=== PATIENT | female | born 1960 | race Two or more races ===

== ENCOUNTER 2016-12-16 12:32 | Emergency (ER) | payer OTHER ==
[2016-12-16 12:40] VITALS: BP 138/90; PULSE 91; TEMP 98.1; BMI 24.5
[2016-12-16] MEDS ORDERED: IBUPROFEN 600 MG TABLET (FP) PO ONE ×2 (13:46→13:49)
--- NOTE | 2016-12-16 13:57 | PDOC ---
History of Present Illness - General Chief Complaint: Injury Stated Complaint: REVISIT/ RT LEG PAIN Time Seen by Provider: 12/16/16 13:36 History Source: Patient Exam Limitations: No Limitations - History of Present Illness Initial Comments: 12/16/16 14:04 This is a 56-year-old woman without significant past medical history who presents today with ankle pain and abrasion to right elbow status post trip and fall over a rock yesterday. Patient was in her normal state of health over a large rock landing on the ground. She denies striking her head or any loss of consciousness. Unable to ambulate immediately after injury and was able to ambulate in the ER today. ETOH- denies TOB- denies Illicits- denies Pain: P- right lateral ankle Q- Achy R- no radiation S- 9 T- 2 days Occurred: reports: yesterday Method of Injury: Yes: unknown Modifying Factors: improves with: None Past History - Past Medical History Allergies/Adverse Reactions: Allergies Allergy/AdvReac Type Severity Reaction Status Date / Time No Known Allergies Allergy Verified 12/16/16 12:40 Home Medications: Ambulatory Orders NK [No Known Home Medication] 12/16/16 Anemia: No Asthma: No Cancer: No Cardiac Disorders: No CVA: No COPD: No CHF: No Dementia: No Diabetes: No GI Disorders: No Disorders: No HTN: No Hypercholesterolemia: No Kidney Stones: No Liver Disease: No Suicide Attempt (Hx): No Seizures: No Thyroid Disease: No Other medical history: denies - Surgical History Abdominal Surgery: No Appendectomy: No Cardiac Surgery: No Cholecystectomy: No Lung Surgery: No Neurologic Surgery: No Orthopedic Surgery: No - Reproductive History PID: No - Psycho/Social/Smoking Cessation Hx Anxiety: No Suicidal Ideation: No Smoking History: Current every day smoker Have you smoked in the past 12 months: Yes Number of Cigarettes Smoked Daily: 10 Information on smoking cessation initiated: Yes 'Breaking Loose' booklet given: 12/16/16 Hx Alcohol Use: No Drug/Substance Use Hx: No Substance Use Type: None Hx Substance Use Treatment: Yes Trauma Specific PMHX - Complaint Specific PMHX Arthritis: No Review of Systems - Review of Systems Able to Perform ROS?: Yes Comments:: 12/16/16 13:48 [employer] #[id number] Is the patient limited Kiswahili proficient: Yes Constitutional: No: Symptoms Reported HEENTM: No: Symptoms Reported Respiratory: No: Symptoms reported Cardiac (ROS): No: Symptoms Reported ABD/GI: No: Symptoms Reported : No: Symptoms Reported Musculoskeletal: Yes: See HPI Integumentary: No: Symptoms Reported Neurological: No: Symptoms reported *Physical Exam - Vital Signs Last Vital Signs Temp Pulse Resp BP Pulse Ox 98.1 F 91 H 18 138/90 98 12/16/16 12:38 12/16/16 12:38 12/16/16 12:38 12/16/16 12:38 12/16/16 12:38 - Physical Exam General Appearance: Yes: Appropriately Dressed. No: Apparent Distress HEENT: positive: EOMI, BAYLEE, Normal ENT Inspection, Normal Voice, Symmetrical Neck: positive: Trachea midline, Supple Respiratory/Chest: positive: Lungs Clear, Normal Breath Sounds. negative: Chest Tender, Respiratory Distress Cardiovascular: positive: Regular Rhythm, Regular Rate. negative: Edema Gastrointestinal/Abdominal: positive: Normal Bowel Sounds, Soft. negative: Tender Musculoskeletal: positive: Normal Inspection. negative: CVA Tenderness Extremity: positive: Normal Capillary Refill, Normal Inspection, Other (TTP over lateral malleolus). negative: Normal Range of Motion Integumentary: positive: Normal Color, Dry, Warm, Other (abrasion noted to right elbow) Neurologic: positive: habilitation worker II-XII NML intact, Fully Oriented, Alert, Normal Mood/ Affect, Normal Response, Motor Strength 5/5 Medical Decision Making - Medical Decision Making 12/16/16 14:07 A: This is a 56-year-old woman without significant past medical history who presents today with ankle pain and abrasion to right elbow status post trip and fall over a rock yesterday. Patient was in her normal state of health over a large rock landing on the ground. She denies striking her head or any loss of consciousness. Unable to ambulate immediately after injury and was able to ambulate in the ER today. Full ROM against resistance. Strength 5/5 in all extremities. [place] akles rules recommend imaging. P: - xray of right ankle and foot - Motrin 600mg po now - tetanus booster 12/16/16 15:19 Xray as read by Cherelle: No acute fractures are seen. There is a mildly permeative pattern in the distal end of the fibula. I discussed the physical exam findings, ancillary test results and final diagnoses with the patient. I answered all of the patient's questions. The patient was satisfied with the care received and felt comfortable with the discharge plan and treatment plan. The patient will call her doctor within 72 hours to arrange follow-up and will return to the Emergency Department with any new, persistent or worsening symptoms. *DC/Admit/Observation/Transfer Diagnosis at time of Disposition: Acute right ankle pain - Discharge Dispostion Disposition: HOME Condition at time of disposition: Stable Admit: No - Patient Instructions Printed Discharge Instructions: DI for Ankle Pain Additional Instructions: Gisselle Hadley segn las instrucciones del fabricante. Coker radiografa muestra un hallazgo que es poncho fractura no aguda, rachel poncho RM puede revelar fracturas, osteoporosis o cualquier otra cosa que incluya la posibilidad de cncer. Se recomienda realizar un seguimiento con coker mdico habitual jacqueline horario de poncho resonancia magntica jacqueline un paciente ambulatorio para seguir evaluando frank hallazgo pema. Departamento de emergencias por cualquier empeoramiento del dolor, incapacidad para caminar, hinchazn o cualquier otra preocupacin. Isaac por elegirnos para atender las necesidades mdicas emergentes.
[2016-12-16] MEDS ORDERED: DIPHTH,PERTUSS(ACELL),TET 0.5 ML DISP.SYRIN IM ONE (14:11)
== END 2016-12-16 15:31 | disposition home or self-care (01) ==
LOC: JERFT 12:32
PROC: 3E0234Z Introduction of Serum, Toxoid and Vaccine into Muscle, Percutaneous Approach (ICD-10-PCS; principal; 2016-12-16)
DX: M25.571 Pain in right ankle and joints of right foot (principal); S50.311A Abrasion of right elbow, initial encounter; W18.09XA Striking against other object with subsequent fall, initial encounter; Y93.89 Activity, other specified; Y92.89 Other specified places as the place of occurrence of the external cause; F17.210 Nicotine dependence, cigarettes, uncomplicated
CPT/HCPCS: 73610-TC-RT; 73630-TC-RT; 90471; 90715; 99281-25

== ENCOUNTER 2018-11-05 07:35 | Emergency (ER) | payer OTHER | END 2018-11-05 13:30 | disposition home or self-care (01) | LOC: JER 07:35 ==

== ENCOUNTER 2019-11-09 21:22 | Emergency (ER) | payer OTHER ==
--- NOTE | 2019-11-09 21:28 | PDOC ---
Rapid Medical Evaluation Time Seen by Provider: 11/09/19 21:25 Medical Evaluation: Allergies Allergy/AdvReac Type Severity Reaction Status Date / Time No Known Allergies Allergy Verified 11/05/18 08:04 11/09/19 21:25 I performed a brief in-person evaluation of this patient. Pt is a 59 y/o female who presents to the ED with complaint of LUQ, LLQ and left flank pain. No hematuria, no dysuria. No fevers, chills, n/v/d/c. The patient states that she is having trouble eating. She has taken Aleve without much relief. No past medical history, no allergies. Pertinent physical exam findings: LUQ, LLQ left flank tender to palp, nontoxic, speaking in full sentences I have ordered the following: labs, ekg, imaging deferred to treating provider Patient to proceed to ED for further evaluation. Discharge Disposition - Diagnosis Abdominal pain - Referrals - Patient Instructions - Post Discharge Activity
[2019-11-09 21:29] VITALS: BP 146/78; TEMP 98.6; BMI 26.4
[2019-11-09 21:37] VITALS: PULSE 93
[2019-11-09] MEDS ORDERED: LIDOCAINE PATCH REMOVAL MC SCH (22:00)
[2019-11-09 22:39] LABS: BASO % 0.7 % (0-2.0); EOS % 1.7 % (0-4.5); HEMATOCRIT 37.9 % (32.4-45.2); HEMOGLOBIN 13.1 GM/dL (10.7-15.3); LYMPH % 59.1 % (8-40); MCH 34.4 pg (25.7-33.7); MCHC 34.6 g/dl (32.0-36.0); MEAN CELL VOLUME 99.6 fl (80-96); MEAN PLT VOLUME 8.4 fl (7.5-11.1); MONO % 8.8 % (3.8-10.2); NEUT % 29.7 % (42.8-82.8); PLATELET COUNT 193 K/MM3 (134-434); RDW 13.3 % (11.6-15.6); WHITE BLOOD COUNT 4.9 K/mm3 (4.0-10.0)
[2019-11-09] MEDS ORDERED: ACETAMINOPHEN 325 MG TABLET (FP) PO ONE (22:39)
[2019-11-09] MEDS ORDERED: LACTATED RINGERS SOLUTION 1000 ML INFUS.BAG IV ONE (22:39)
[2019-11-09] MEDS ORDERED: ACETAMINOPHEN 325 MG TABLET (FP) ONE (22:47)
[2019-11-09 23:03] LABS: INR 0.9 (0.83-1.09); PROTHROMBIN TIME (PATIENT) 10.6 SEC (9.7-13.0)
[2019-11-09 23:06] LABS: ACTIVATED PTT 29.5 SECONDS (25.2-36.5)
[2019-11-09 23:09] LABS: ALBUMIN 3.8 g/dl (3.4-5.0); BILIRUBIN,TOTAL 0.4 mg/dL (0.2-1); BLOOD UREA NITROGEN 5.8 mg/dL (7-18); CALCIUM 9.1 mg/dL (8.5-10.1); CREATININE 0.5 mg/dL (0.55-1.3); POTASSIUM 4.4 mmol/L (3.5-5.1); TOT PROT 7.4 g/dl (6.4-8.2)
[2019-11-09 23:13] LABS: PH,URINE 5.5 (5.0-8.0); URINE APPEARANCE CLEAR; URINE BILIRUBIN NEGATIVE (NEGATIVE); URINE COLOR YELLOW; URINE GLUCOSE (UA) NEGATIVE (NEGATIVE); URINE KETONE NEGATIVE (NEGATIVE); URINE LEUK ESTERASE NEGATIVE (NEGATIVE); URINE NITRITE NEGATIVE (NEGATIVE); URINE PROTEIN NEGATIVE (NEGATIVE); URINE UROBILINOGEN 0.2 mg/dL (0.2-1.0)
--- NOTE | 2019-11-09 23:26 | PDOC ---
Attending Attestation - Resident Resident Name: Aldo Collins - ED Attending Attestation I have performed the following: I have examined & evaluated the patient, The case was reviewed & discussed with the resident, I agree w/resident's findings & plan - HPI HPI: 11/09/19 23:26 Pt comes with epigastric pain; she is a heavy drinker of alcohol. - Physicial Exam PE: 11/10/19 02:03 Normal exam. Heart lungs clear abd soft NT ND pt has minimal epigastric discomfort Pt has no flank pain Pt is moving all extremities and answering questions normally Pt has alcohol intox. - Medical Decision Making 11/10/19 00:08 Patient Name: YOANNA BURROUGHS THIS IS A PRELIMINARY REPORT FROM [facility] DATE OF SERVICE: 2019-11-09 23:20:54 IMAGES: [id number] EXAM: SPIRAL- RENAL-STONE CT HISTORY: Left lower quadrant pain COMPARISON: None. FINDINGS: The lung bases are clear. There are coronary artery calcifications Liver is mildly enlarged measuring 18 cm in craniocaudal dimension. The g allbladder, spleen, pancreas and adrenal glands are grossly normal allowing for lack of intravenous contrast The kidneys are normal in size without hydronephrosis or nephrolithiasis. There are a few small calcifications along the course of the left ureter suspected to be adjacent vascular calcifications in the absence of obstructive findings although cannot entirely exclude nonobstructing ureteral stones. No bowel distention or appreciable thickening allowing for lack of enteric contrast. Normal appendix. Enlarged lobulated uterus with multiple leiomyomas and myomatous calcifications No intra-abdominal free air or free fluid of 11/10/19 00:55 All labs are normal 11/10/19 02:21 Pt received a banana bag and she is stable for d/c home Discharge - Discharge Information Problems reviewed: Yes Clinical Impression/Diagnosis: Flank pain Abdominal pain Qualifiers: Abdominal location: left lower quadrant Qualified Code(s): R10.32 - Left lower quadrant pain Condition: Improved Disposition: HOME - Follow up/Referral Referrals: Jolly Rich MD [Staff Physician] - - Patient Discharge Instructions Patient Printed Discharge Instructions: DI for Abdominal Pain-Adult Additional Instructions: Llegaste al servicio de urgencias con dolor en la parte inferior izquierda de tu abdomen. Tomamos poncho foto de coker abdomen con poncho tomografa computarizada, analizamos coker avinash y le dimos un medicamento para el dolor. Descubrimos que tienes crecimientos en tu tero. Zara un seguimiento con OBGYN (Dr. Rich) dentro de los 7 sepulveda posteriores al emiliana. Regrese al departamento de emergencias si tiene algn sntoma nuevo o que empeore. Print Language: IRISH - Post Discharge Activity
--- NOTE | 2019-11-09 23:40 | PDOC ---
History of Present Illness - General Chief Complaint: Pain Stated Complaint: LLQ/L/SACRAL/PAIN Time Seen by Provider: 11/09/19 21:25 - History of Present Illness Initial Comments: 11/09/19 23:31 59yo F w/ h/o frequent use EtOH p/w L sided ABD, CVA, and flank pain. It started 3days ago when she was lifting a heavy shopping bag. Since then her diet has been decreased and the pain has gotten more severe. It is Left Lower ABD just above the inguinal ligament and radiates along the left flank to her L CVA area. No h/o kidney stones, hernias. No dysuria. No hematuria, vaginal bleeding, n/v/d/cough/fever/rash. No pain w/ defecation. No melena or hematochezia. Last urine and BM were both today. She is keeping food down. PMH: hospitalized 14yrs ago for some cardiac issue. Does not f/u w/ cardiology. denies having overseamer or PCP. PSH: distant c/s FHx: no h/o cancer SHx: 6-7cigs/day [id number] years. Daily EtOH use. states "2 beers per day." denies other kinds of EtOH. last intake of EtOH was 40oz 1hour ago. denies street drugs ROS CONSTITUTIONAL: Absent: fever, chills, diaphoresis, generalized weakness, malaise, loss of appetite HEENT: Absent: rhinorrhea, nasal congestion, throat pain, throat swelling, difficulty swallowing, mouth swelling, ear pain, eye pain, visual Changes CARDIOVASCULAR: Absent: chest pain, syncope, palpitations, irregular heart rate, lightheadedness, peripheral edema RESPIRATORY: Absent: cough, shortness of breath, dyspnea with exertion, orthopnea, wheezing, stridor, hemoptysis GASTROINTESTINAL: Absent: abdominal pain, abdominal distension, nausea, vomiting, diarrhea, cons tipation, melena, hematochezia GENITOURINARY: Absent: dysuria, frequency, urgency, hesitancy, hematuria, flank pain, genital pain MUSCULOSKELETAL: Absent: myalgia, arthralgia, joint swelling SKIN: Absent: rash, itching, pallor HEMATOLOGIC/IMMUNOLOGIC: Absent: easy bleeding, easy bruising, lymphadenopathy, frequent infections ENDOCRINE: Absent: unexplained weight gain, unexplained weight loss, heat intolerance, cold intolerance NEUROLOGIC: Absent: headache, focal weakness or paresthesias, dizziness, unsteady gait, seizure, mental status changes, bladder or bowel incontinence PSYCHIATRIC: Absent: anxiety, depression, suicidal or homicidal ideation, hallucinations. PE GENERAL: Thin woman. Awake and alert. No acute distress. Smell of EtOH on breath. HEENT: Normocephalic, atraumatic. PERRLA, EOMI. Mucous membranes are dry. Missing many teeth NECK: Supple. Full ROM. No JVD. No thyromegaly. CARDIOVASCULAR: Regular rate and rhythm. No murmurs, rubs, or gallops. Distal pulses are 2+ and symmetric. PULMONARY: No evidence of respiratory distress. Lungs demonstrate bilateral inspiratory wheezing. ABDOMINAL: Tender on LUQ and LLQ. Tender on L flank and L CVA tenderness. No organomegaly. Normoactive bowel sounds. MUSCULOSKELETAL Normal range of motion at all joints. No bony deformities or tenderness. No CVA tenderness. EXTREMITIES: No cyanosis. No clubbing. No edema. No calf tenderness. SKIN: Warm and dry. Normal capillary refill. No rashes. No jaundice. NEUROLOGICAL: Alert, awake, appropriate. PSYCHIATRIC: Cooperative. Good eye contact. Appropriate mood and affect. MDM CT scan showed leiomyomata in urterus but no stones or intra ABD pathology Blood work showed no signs of inflammation, hepatic, renal, or GI pathology. UA was negative. Will send home w/ referral for OBGYN. 11/09/19 23:41 11/10/19 01:28 Past History - Medical History Allergies/Adverse Reactions: Allergies Allergy/AdvReac Type Severity Reaction Status Date / Time No Known Allergies Allergy Verified 11/05/18 08:04 Home Medications: Ambulatory Orders Famotidine 10 mg PO BID PRN 14 Days #28 tablet 11/05/18 Ibuprofen [Advil -] 200 mg PO QID PRN 11/05/18 Mag Hydrox/Al Hydrox/Simeth [Mylanta *Suspension*] 10 ml PO Q6H PRN 30 Days #1200 cup 11/05/18 Anemia: No Asthma: No Cancer: No Cardiac Disorders: No CVA: No COPD: No CHF: No Dementia: No Diabetes: Yes GI Disorders: No Disorders: No HTN: No Hypercholesterolemia: No Kidney Stones: No Liver Disease: No Seizures: No Thyroid Disease: No - Surgical History Abdominal Surgery: No Appendectomy: No Cardiac Surgery: No Cholecystectomy: No Lung Surgery: No Neurologic Surgery: No Orthopedic Surgery: No - Reproductive History PID: No - Immunization History Immunization Up to Date: Yes - Psycho-Social/Smoking History Smoking History: Current every day smoker Have you smoked in the past 12 months: Yes Number of Cigarettes Smoked Daily: 6 Information on smoking cessation initiated: No 'Breaking Loose' booklet given: 12/16/16 - Substance Abuse Hx (Audit-C & DAST Scrn) How often the patient has a drink containing alcohol: Never Score: In Men: 4 or > Positive; In Women: 3 or > Positive: 0 Screen Result (Pos requires Nsg. Audit-10AR): Negative *Physical Exam - Vital Signs Last Vital Signs Temp Pulse Resp BP Pulse Ox 98.6 F 93 H 19 146/78 97 11/09/19 21:25 11/09/19 21:25 11/09/19 21:25 11/09/19 21:25 11/09/19 21:25 ED Treatment Course - LABORATORY CBC & Chemistry Diagram: 11/09/19 22:30 11/09/19 22:30 - ADDITIONAL ORDERS Additional order review: Laboratory Results 11/09/19 11/09/19 11/09/19 23:00 22:30 22:30 PT with INR 10.60 INR 0.90 PTT (Actin FS) 29.5 Sodium 139 Potassium 4.4 Chloride 103 Carbon Dioxide 27 Anion Gap 10 BUN 5.8 L Creatinine 0.5 L Est GFR (CKD-EPI)AfAm 123.65 Est GFR (CKD-EPI)NonAf 106.68 Random Glucose 89 Calcium 9.1 Total Bilirubin 0.4 AST 48 H ALT 25 Alkaline Phosphatase 75 Total Protein 7.4 Albumin 3.8 Lipase 110 Urine Color Yellow Urine Appearance Clear Urine pH 5.5 Ur Specific [place] 1.003 L Urine Protein Negative Urine Glucose (UA) Negative Urine Ketones Negative Urine Blood Negative Urine Nitrite Negative Urine Bilirubin Negative Urine Urobilinogen 0.2 Ur Leukocyte Esterase Negative 11/09/19 22:30 RBC 3.80 MCV 99.6 H MCHC 34.6 RDW 13.3 MPV 8.4 Neutrophils % 29.7 L D Lymphocytes % 59.1 H D Monocytes % 8.8 Eosinophils % 1.7 D Basophils % 0.7 D - RADIOLOGY Radiology Studies Ordered: Category Date Time Status SPIRAL- RENAL-STONE CT [CT] Stat CT Scan 11/09/19 23:12 Taken Radiograph Interpretation: Spiral CT THIS IS A PRELIMINARY REPORT FROM [facility] DATE OF SERVICE: 2019-11-09 23:20:54 IMAGES: [id number] EXAM: SPIRAL- RENAL-STONE CT HISTORY: Left lower quadrant pain COMPARISON: None. FINDINGS: The lung bases are clear. There are coronary artery calcifications Liver is mildly enlarged measuring 18 cm in craniocaudal dimension. The gallbladder, spleen, pancreas and adrenal glands are grossly normal allowing for lack of intravenous contrast The kidneys are normal in size without hydronephrosis or nephrolithiasis. There are a few small calcifications along the course of the left ureter suspected to be adjacent vascular calcifications in the absence of obstructive findings although cannot entirely exclude nonobstructing ureteral stones. No bowel distention or appreciable thickening allowing for lack of enteric contrast. Normal appendix. Enlarged lobulated uterus with multiple leiomyomas and myomatous calcifications No intra-abdominal free air or free fluid of One or more of the following dose reduction techniques were used: automated exposure control, adjustment of the mA and/or kV according to patient size, use of iterative reconstructive technique. THIS DOCUMENT HAS BEEN ELECTRONICALLY SIGNED Nadeem Mendez MD 11/09/2019 23:41 EST M.D. Please call Imaging Vice President Of Compliance [phone] ([phone]) with questions. - Medications Given in the ED: ED Medications Discontinued Medications Generic Name Dose Route Start Last Admin Trade Name Freq PRN Reason Stop Dose Admin Acetaminophen 650 mg 11/09/19 22:39 11/09/19 23:09 Tylenol - PO 11/09/19 22:40 650 mg ONCE ONE Administration Lactated Ringer's 1,000 ml 11/09/19 22:39 11/09/19 23:08 Lactated Ringers Solution IV 11/09/19 22:40 1,000 ml ONCE ONE Administration Discharge - Discharge Information Problems reviewed: Yes Clinical Impression/Diagnosis: Flank pain Abdominal pain Qualifiers: Abdominal location: left lower quadrant Qualified Code(s): R10.32 - Left lower quadrant pain Condition: Improved Disposition: HOME - Admission No - Follow up/Referral Referrals: Jolly Rich MD [Staff Physician] - - Patient Discharge Instructions Patient Printed Discharge Instructions: DI for Abdominal Pain-Adult Additional Instructions: Llegaste al servicio de urgencias con dolor en la parte inferior izquierda de tu abdomen. Tomamos poncho foto de coker abdomen con poncho tomografa computarizada, analizamos coker avinash y le dimos un medicamento para el dolor. Descubrimos que tienes crecimientos en tu tero. Zara un seguimiento con OBGYN (Dr. Rich) dentro de los 7 sepulveda posteriores al emiliana. Regrese al departamento de emergencias si tiene algn sntoma nuevo o que empeore. Print Language: HUNGARIAN - Post Discharge Activity
[2019-11-09] MEDS ORDERED: LIDOCAINE 5% TOPICAL PATCH TP ONE (23:51)
[2019-11-09] MEDS ORDERED: KETOROLAC TROMETHAMINE 30 MG/1 ML VIAL IM ONE (23:51)
[2019-11-09] MEDS ORDERED: LIDOCAINE 5% TOPICAL PATCH ONE (23:57)
[2019-11-09] MEDS ORDERED: KETOROLAC TROMETHAMINE 30 MG/1 ML VIAL ONE (23:57)
[2019-11-10] MEDS ORDERED: FOLIC ACID INJECTION - 1 MG, THIAMINE HCL 100 MG, MULTIVIT INJECTION ADULT 10 ML in SOD... IVPB ONE ×2 (01:04→01:05)
--- NOTE | 2019-11-11 10:05 | EKG ---
Test Reason : Blood Pressure : / mmHG Vent. Rate : 071 BPM Atrial Rate : 071 BPM P-R Int : 180 ms QRS Dur : 072 ms QT Int : 392 ms P-R-T Axes : 072 -11 061 degrees QTc Int : 425 ms NORMAL SINUS RHYTHM POSSIBLE LEFT ATRIAL ENLARGEMENT BORDERLINE ECG WHEN COMPARED WITH ECG OF 05-NOV-2018 07:37, NO SIGNIFICANT CHANGE WAS FOUND Confirmed by Page Alexandre ([id number]) on 11/11/2019 10:04:49 AM Referred By: Confirmed By:Page Alexandre
== END 2019-11-10 02:42 | disposition home or self-care (01) ==
LOC: JER 21:22
PROC: 3E033GC Introduction of Other Therapeutic Substance into Peripheral Vein, Percutaneous Approach (ICD-10-PCS; principal; 2019-11-09)
PROC: 3E0233Z Introduction of Anti-inflammatory into Muscle, Percutaneous Approach (ICD-10-PCS; 2019-11-09)
DX: R10.32 Left lower quadrant pain (principal)
CPT/HCPCS: 36415; 74176-TC; 80053; 81003; 83690; 85025; 85610; 85730; 86308; 86850; 86900; 86901; 87086; 93005; 93010; 99285-25

== ENCOUNTER 2021-07-03 21:02 | Emergency (ER) | payer OTHER ==
[2021-07-03 21:14] VITALS: TEMP 97.7; BMI 27.4
[2021-07-03] MEDS ORDERED: ALBUTEROL SO4 2.5/IPRATROPIUM 0.5 INH SOL 3 ML VIAL.NEB. NEB ONE ×2 (21:24→21:29)
[2021-07-03] MEDS ORDERED: DEXAMETHASONE SOD PHOSPHATE 10 MG/1 ML VIAL IVPUSH ONE (21:38)
[2021-07-03] MEDS ORDERED: DEXAMETHASONE SOD PHOSPHATE 10 MG/1 ML VIAL ONE (21:42)
[2021-07-03 21:44] LABS: BASO % 1.4 % (0-2.0); EOS % 10.6 % (0-4.5); HEMATOCRIT 40.9 % (32.4-45.2); HEMOGLOBIN 14.3 GM/dL (10.7-15.3); LYMPH % 55.5 % (8-40); MEAN CELL VOLUME 94.1 fl (80-96); MEAN PLT VOLUME 7.9 fl (7.5-11.1); MONO % 7.9 % (3.8-10.2); NEUT % 24.6 % (42.8-82.8); PLATELET COUNT 325 10^3/uL (134-434); RBC 4.35 M/mm3 (3.60-5.2); RDW 13.2 % (11.6-15.6); WHITE BLOOD COUNT 6.4 K/mm3 (4.0-10.0)
[2021-07-03 21:46] LABS: VENOUS O2 SATURATION 69.9 % (70-80); VENOUS PCO2 30.8 mmHg (38-52); VENOUS PH 7.447 (7.310-7.410)
[2021-07-03 22:10] LABS: CALCIUM 9.1 mg/dL (8.5-10.1)
[2021-07-03 22:11] LABS: ALBUMIN 3.8 g/dl (3.4-5.0); BLOOD UREA NITROGEN 5.1 mg/dL (7-18); MAGNESIUM 1.9 mg/dL (1.8-2.4)
[2021-07-03 22:14] LABS: CREATININE 0.5 mg/dL (0.55-1.3)
[2021-07-03 22:15] LABS: BILIRUBIN,TOTAL 0.4 mg/dL (0.2-1); TOT PROT 7.8 g/dl (6.4-8.2)
[2021-07-03] MEDS ORDERED: AZITHROMYCIN 500 MG TABLET PO ONE (23:57)
[2021-07-04] MEDS ORDERED: AZITHROMYCIN 250 MG TABLET ONE (00:53)
[2021-07-04 01:05] VITALS: BP 133/73; PULSE 79
[2021-07-05 13:07] LABS: SARS-CoV-2 NAA Not Detected (Not Detected)
== END 2021-07-04 01:07 | disposition home or self-care (01) ==
LOC: JER 21:02
PROC: 3E0F7GC Introduction of Other Therapeutic Substance into Respiratory Tract, Via Natural or Artificial Opening (ICD-10-PCS; principal; 2021-07-03)
PROC: 3E033GC Introduction of Other Therapeutic Substance into Peripheral Vein, Percutaneous Approach (ICD-10-PCS; 2021-07-03)
DX: J44.1 Chronic obstructive pulmonary disease with (acute) exacerbation (principal)
CPT/HCPCS: 36415; 71045-TC-FY; 80053; 82803; 83735; 84484; 85025; 93005; 93010; 99285-25; C9803-CS; J1100; U0003; U0005

== ENCOUNTER 2021-07-21 20:39 | Observation (INO) | payer OTHER ==
[2021-07-21] MEDS ORDERED: ALBUTEROL SO4 2.5/IPRATROPIUM 0.5 INH SOL 3 ML VIAL.NEB. NEB ONE (21:46)
[2021-07-21] MEDS: ALBUTEROL SO4 2.5/IPRATROPIUM 0.5 INH SOL 3 ML VIAL.NEB. NEB SCH ×2 (21:55→22:28)
[2021-07-21 22:11] LABS: VENOUS BASE EXCESS -6.3 mmol/L (-2-2); VENOUS O2 SATURATION 71.9 % (70-80); VENOUS PCO2 35.8 mmHg (38-52); VENOUS PH 7.334 (7.310-7.410)
[2021-07-21 22:13] LABS: BASO % 0.4 % (0-2.0); EOS % 5.7 % (0-4.5); HEMATOCRIT 42.5 % (32.4-45.2); HEMOGLOBIN 14.6 GM/dL (10.7-15.3); MCH 33.1 pg (25.7-33.7); MCHC 34.3 g/dl (32.0-36.0); MEAN CELL VOLUME 96.6 fl (80-96); MEAN PLT VOLUME 8.6 fl (7.5-11.1); MONO % 2.5 % (3.8-10.2); NEUT % 82.4 % (42.8-82.8); PLATELET COUNT 294 10^3/uL (134-434); RDW 12.8 % (11.6-15.6); WHITE BLOOD COUNT 10.2 K/mm3 (4.0-10.0)
[2021-07-21 22:37] LABS: CALCIUM 9.4 mg/dL (8.5-10.1)
[2021-07-21 22:38] LABS: ALBUMIN 3.8 g/dl (3.4-5.0); BLOOD UREA NITROGEN 10.8 mg/dL (7-18)
[2021-07-21 22:41] LABS: CREATININE 0.7 mg/dL (0.55-1.3)
[2021-07-21 22:42] LABS: BILIRUBIN,TOTAL 0.6 mg/dL (0.2-1); TOT PROT 8.2 g/dl (6.4-8.2)
[2021-07-21] MEDS ORDERED: methylPREDNISolone NA SUCC 125 MG/2 ML VIAL IVPB ONE (22:44)
[2021-07-21] MEDS ORDERED: AZITHROMYCIN IVPB 500 MG in DEXTROSE 5%-WATER - 250 ML IVPB ONE (22:44)
[2021-07-21] MEDS ORDERED: AZITHROMYCIN IVPB 500 MG/250 ML BAG IVPB ONE (22:53)
[2021-07-21] MEDS ORDERED: methylPREDNISolone NA SUCC 125 MG/2 ML VIAL ONE (22:53)
[2021-07-22] MEDS ORDERED: ACETAMINOPHEN 325 MG TABLET (FP) PO ONE (00:19)
[2021-07-22] MEDS ORDERED: ALBUTEROL SO4 0.083% IH SOL 2.5 MG/3 ML VIAL.NEB. NEB ONE (00:20)
[2021-07-22] MEDS ORDERED: ALBUTEROL SO4 2.5/IPRATROPIUM 0.5 INH SOL 3 ML VIAL.NEB. NEB PRN (06:07)
[2021-07-22 08:42] LABS: BASO % 0.2 % (0-2.0); EOS % 0.1 % (0-4.5); LYMPH % 8.2 % (8-40); MCH 32.9 pg (25.7-33.7); MCHC 34.2 g/dl (32.0-36.0); MEAN CELL VOLUME 96.1 fl (80-96); MEAN PLT VOLUME 8.9 fl (7.5-11.1); MONO % 1.7 % (3.8-10.2); NEUT % 89.8 % (42.8-82.8); PLATELET COUNT 302 10^3/uL (134-434); RBC 4.26 M/mm3 (3.60-5.2); RDW 12.6 % (11.6-15.6); WHITE BLOOD COUNT 6.3 K/mm3 (4.0-10.0)
[2021-07-22 08:47] LABS: CALCIUM 9.9 mg/dL (8.5-10.1)
[2021-07-22 08:48] LABS: ALBUMIN 3.7 g/dl (3.4-5.0); BLOOD UREA NITROGEN 9.6 mg/dL (7-18)
[2021-07-22 08:51] LABS: CREATININE 0.7 mg/dL (0.55-1.3)
[2021-07-22 08:52] LABS: BILIRUBIN,TOTAL 0.6 mg/dL (0.2-1); TOT PROT 8.1 g/dl (6.4-8.2)
[2021-07-22] MEDS ORDERED: ASPIRIN 81 MG CHEWABLE TABLETS ONE (08:53)
[2021-07-22] MEDS ORDERED: AZITHROMYCIN IVPB 500 MG/250 ML BAG IVPB ONE (08:53)
[2021-07-22] MEDS ORDERED: methylPREDNISolone NA SUCC 40 MG/1 ML VIAL ONE ×2 (08:53→14:43)
[2021-07-22] MEDS: methylPREDNISolone NA SUCC 40 MG/1 ML VIAL IVPUSH SCH ×3 (09:06→22:05)
[2021-07-22] MEDS: ASPIRIN 81 MG CHEWABLE TABLETS PO SCH (09:06)
[2021-07-22] MEDS ORDERED: AZITHROMYCIN IVPB 500 MG in DEXTROSE 5%-WATER - 250 ML IVPB SCH (10:00)
[2021-07-22] MEDS: MIRTAZAPINE 15 MG TABLET (FP) PO SCH (22:05)
[2021-07-22] MEDS: ALBUTEROL SO4 HFA INHALER IH PRN (22:05)
[2021-07-22] MEDS: MELATONIN 5 MG TABLETS PO PRN (22:05)
[2021-07-22] MEDS: guaiFENesin 200 MG/10 ML 10 ML UNIT-DOSE CUPS PO PRN (22:41)
[2021-07-22] MEDS: ACETAMINOPHEN 325 MG TABLET (FP) PO PRN (23:06)
[2021-07-23] MEDS: methylPREDNISolone NA SUCC 40 MG/1 ML VIAL IVPUSH SCH ×4 (03:38→20:41)
[2021-07-23] MEDS: guaiFENesin 200 MG/10 ML 10 ML UNIT-DOSE CUPS PO PRN ×2 (05:34→18:22)
[2021-07-23] MEDS: ALBUTEROL SO4 HFA INHALER IH PRN ×2 (05:34→20:42)
[2021-07-23] MEDS: ACETAMINOPHEN 325 MG TABLET (FP) PO PRN ×2 (08:51→20:41)
[2021-07-23] MEDS: ASPIRIN 81 MG CHEWABLE TABLETS PO SCH (08:59)
[2021-07-23] MEDS ORDERED: AZITHROMYCIN IVPB 500 MG/250 ML BAG IVPB SCH (09:32)
[2021-07-23] MEDS: AZITHROMYCIN IVPB 500 MG/250 ML BAG IVPB SCH (10:04)
[2021-07-23] MEDS: ENOXAPARIN NA (PORCINE) 40 MG/0.4 ML DISP.SYRIN SQ SCH (11:56)
[2021-07-23] MEDS: PANTOPRAZOLE 40 MG TABLET PO SCH (11:56)
[2021-07-23] MEDS: guaiFENesin 600 MG TABLET.ER (FP) PO SCH ×2 (12:14→20:59)
[2021-07-23] MEDS: MELATONIN 5 MG TABLETS PO PRN (20:59)
[2021-07-23] MEDS: MIRTAZAPINE 15 MG TABLET (FP) PO SCH (20:59)
[2021-07-24] MEDS: methylPREDNISolone NA SUCC 40 MG/1 ML VIAL IVPUSH SCH ×3 (02:20→21:13)
[2021-07-24] MEDS: guaiFENesin 200 MG/10 ML 10 ML UNIT-DOSE CUPS PO PRN (04:23)
[2021-07-24 07:55] LABS: CALCIUM 9.3 mg/dL (8.5-10.1)
[2021-07-24 07:56] LABS: BLOOD UREA NITROGEN 19.1 mg/dL (7-18)
[2021-07-24 07:59] LABS: CREATININE 0.6 mg/dL (0.55-1.3)
[2021-07-24] MEDS: ASPIRIN 81 MG CHEWABLE TABLETS PO SCH (09:18)
[2021-07-24] MEDS: AZITHROMYCIN IVPB 500 MG/250 ML BAG IVPB SCH (09:18)
[2021-07-24] MEDS: PANTOPRAZOLE 40 MG TABLET PO SCH (09:18)
[2021-07-24] MEDS: guaiFENesin 600 MG TABLET.ER (FP) PO SCH ×2 (09:18→21:14)
[2021-07-24] MEDS: ENOXAPARIN NA (PORCINE) 40 MG/0.4 ML DISP.SYRIN SQ SCH (09:19)
[2021-07-24 10:07] LABS: SARS-CoV-2 NAA Not Detected (Not Detected)
[2021-07-24] MEDS ORDERED: ALBUTEROL SO4 0.083% IH SOL 2.5 MG/3 ML VIAL.NEB. NEB PRN (11:56)
[2021-07-24] MEDS: BUDESONIDE/FORMETEROL FUMARATE 160/4.5 mcg INHALER IH SCH ×2 (12:28→21:13)
[2021-07-24] MEDS: TIOTROPIUM BROMIDE 2.5 MCG (SPIRIVA) RESPIMAT INHALER IH SCH (12:29)
[2021-07-24 13:15] VITALS: BMI 19.3
[2021-07-24] MEDS ORDERED: methylPREDNISolone NA SUCC 40 MG/1 ML VIAL IVPUSH SCH (18:00)
[2021-07-24] MEDS: MELATONIN 5 MG TABLETS PO PRN (21:14)
[2021-07-24] MEDS: MIRTAZAPINE 15 MG TABLET (FP) PO SCH (21:14)
[2021-07-24] MEDS: ACETAMINOPHEN 325 MG TABLET (FP) PO PRN (21:14)
[2021-07-24] MEDS: ALBUTEROL SO4 HFA INHALER IH PRN (21:14)
[2021-07-25 08:41] LABS: CREATININE 0.6 mg/dL (0.55-1.3)
[2021-07-25] MEDS: methylPREDNISolone NA SUCC 40 MG/1 ML VIAL IVPUSH SCH (09:16)
[2021-07-25] MEDS: BUDESONIDE/FORMETEROL FUMARATE 160/4.5 mcg INHALER IH SCH (09:17)
[2021-07-25] MEDS: ASPIRIN 81 MG CHEWABLE TABLETS PO SCH (09:17)
[2021-07-25] MEDS: PANTOPRAZOLE 40 MG TABLET PO SCH (09:17)
[2021-07-25] MEDS: ENOXAPARIN NA (PORCINE) 40 MG/0.4 ML DISP.SYRIN SQ SCH (09:17)
[2021-07-25] MEDS: guaiFENesin 600 MG TABLET.ER (FP) PO SCH (09:17)
[2021-07-25] MEDS: TIOTROPIUM BROMIDE 2.5 MCG (SPIRIVA) RESPIMAT INHALER IH SCH (09:18)
[2021-07-25] MEDS: ACETAMINOPHEN 325 MG TABLET (FP) PO PRN (10:59)
[2021-07-25 14:10] VITALS: BP 125/75; PULSE 78; TEMP 98.8
== END 2021-07-25 16:52 | disposition home or self-care (01) ==
LOC: JER 20:39 → JERBED 07-22 01:10 → J4S 07-22 21:28
PROVIDERS: ADMIT Internal Medicine; ATTEND Internal Medicine
PROC: 3E0F7GC Introduction of Other Therapeutic Substance into Respiratory Tract, Via Natural or Artificial Opening (ICD-10-PCS; principal; 2021-07-22)
PROC: 3E03329 Introduction of Other Anti-infective into Peripheral Vein, Percutaneous Approach (ICD-10-PCS; 2021-07-22)
PROC: 3E033GC Introduction of Other Therapeutic Substance into Peripheral Vein, Percutaneous Approach (ICD-10-PCS; 2021-07-22)
DX: J96.01 Acute respiratory failure with hypoxia (principal); F32.9 Major depressive disorder, single episode, unspecified; J45.909 Unspecified asthma, uncomplicated; R05.9 Cough, unspecified; R07.9 Chest pain, unspecified; J44.9 Chronic obstructive pulmonary disease, unspecified; Z20.822 Contact with and (suspected) exposure to COVID-19; F17.210 Nicotine dependence, cigarettes, uncomplicated; Z29.8 Encounter for other specified prophylactic measures
CPT/HCPCS: 36415; 71045-TC-FY; 80048; 80053; 80061; 82803; 83735; 83880; 84443; 84484; 85025; 85379; 87040; 87070; 87205; 87804; 93005; 93010; 94640; 94761; 96365; 96366; 96367; 96372; 96375; 96376; 99285-25; C9803-CS; G0378; U0003; U0005

== ENCOUNTER 2021-08-31 20:30 | Inpatient (IN) | payer OTHER ==
[2021-08-31 20:43] VITALS: BMI 22.1
[2021-08-31] MEDS ORDERED: MAGNESIUM SULF 50% (8.12 MEQ/2 ML-1 GM VIAL) IVPB ONE (21:06)
[2021-08-31] MEDS ORDERED: ALBUTEROL SO4 2.5/IPRATROPIUM 0.5 INH SOL 3 ML VIAL.NEB. NEB ONE ×2 (21:06→21:29)
[2021-08-31] MEDS ORDERED: DEXAMETHASONE SOD PHOSPHATE 10 MG/1 ML VIAL IVPUSH ONE (21:08)
[2021-08-31] MEDS ORDERED: DEXAMETHASONE SOD PHOSPHATE 10 MG/1 ML VIAL ONE (21:29)
[2021-08-31] MEDS ORDERED: MAGNESIUM SULF 50% (8.12 MEQ/2 ML-1 GM VIAL) ONE (21:29)
[2021-08-31 22:27] LABS: EOS % 9.9 % (0-4.5); HEMOGLOBIN 13.6 GM/dL (10.7-15.3); LYMPH % 31.4 % (8-40); MCH 33.4 pg (25.7-33.7); MEAN CELL VOLUME 98.3 fl (80-96); MEAN PLT VOLUME 8.5 fl (7.5-11.1); MONO % 8.9 % (3.8-10.2); NEUT % 48.8 % (42.8-82.8); PLATELET COUNT 306 10^3/uL (134-434); RBC 4.07 M/mm3 (3.60-5.2); RDW 13.5 % (11.6-15.6); WHITE BLOOD COUNT 8.4 K/mm3 (4.0-10.0)
[2021-08-31 22:45] LABS: CALCIUM 9.2 mg/dL (8.5-10.1)
[2021-08-31 22:46] LABS: ALBUMIN 3.7 g/dl (3.4-5.0); BLOOD UREA NITROGEN 7.2 mg/dL (7-18)
[2021-08-31 22:49] LABS: CREATININE 0.5 mg/dL (0.55-1.3)
[2021-08-31 22:51] LABS: BILIRUBIN,TOTAL 0.5 mg/dL (0.2-1); TOT PROT 7.4 g/dl (6.4-8.2)
[2021-09-01] MEDS ORDERED: ALBUTEROL SO4 0.083% IH SOL 2.5 MG/3 ML VIAL.NEB. NEB PRN (00:26)
[2021-09-01] MEDS ORDERED: guaiFENesin 200 MG/10 ML 10 ML UNIT-DOSE CUPS PO PRN (00:26)
[2021-09-01] MEDS ORDERED: ALBUTEROL SO4 HFA INHALER IH PRN (00:26)
[2021-09-01] MEDS ORDERED: ALBUTEROL SO4 0.083% IH SOL 2.5 MG/3 ML VIAL.NEB. NEB ONE (07:21)
[2021-09-01 07:46] LABS: HEMATOCRIT 39.4 % (32.4-45.2); HEMOGLOBIN 13.7 GM/dL (10.7-15.3); MCHC 34.9 g/dl (32.0-36.0); MEAN CELL VOLUME 97.5 fl (80-96); MEAN PLT VOLUME 8.6 fl (7.5-11.1); PLATELET COUNT 317 10^3/uL (134-434); RBC 4.04 M/mm3 (3.60-5.2); RDW 13.5 % (11.6-15.6)
[2021-09-01 08:08] LABS: BLOOD UREA NITROGEN 7.7 mg/dL (7-18); MAGNESIUM 2.4 mg/dL (1.8-2.4)
[2021-09-01 08:11] LABS: CALCIUM 9.2 mg/dL (8.5-10.1)
[2021-09-01 08:12] LABS: CREATININE 0.5 mg/dL (0.55-1.3)
[2021-09-01 08:31] LABS: ANISOCYTOSIS 1+; MACROCYTOSIS 0
[2021-09-01] MEDS ORDERED: TIOTROPIUM BROMIDE 2.5 MCG (SPIRIVA) RESPIMAT INHALER IH SCH (10:00)
[2021-09-01] MEDS ORDERED: ASPIRIN 81 MG CHEWABLE TABLETS ONE (11:21)
[2021-09-01] MEDS ORDERED: methylPREDNISolone NA SUCC 40 MG/1 ML VIAL ONE ×2 (11:22→16:48)
[2021-09-01] MEDS ORDERED: ENOXAPARIN NA (PORCINE) 40 MG/0.4 ML DISP.SYRIN SQ ONE (11:22)
[2021-09-01] MEDS: methylPREDNISolone NA SUCC 40 MG/1 ML VIAL IVPUSH SCH ×3 (11:29→21:46)
[2021-09-01] MEDS: ASPIRIN 81 MG CHEWABLE TABLETS PO SCH (11:29)
[2021-09-01] MEDS: ENOXAPARIN NA (PORCINE) 40 MG/0.4 ML DISP.SYRIN SQ SCH (11:29)
[2021-09-01] MEDS: BUDESONIDE/FORMETEROL FUMARATE 160/4.5 mcg INHALER IH SCH ×2 (13:00→21:46)
[2021-09-01] MEDS ORDERED: AZITHROMYCIN IVPB 500 MG/250 ML BAG IVPB ONE (13:42)
[2021-09-01] MEDS: AZITHROMYCIN IVPB 500 MG/250 ML BAG IVPB SCH (13:56)
[2021-09-01] MEDS ORDERED: ALBUTEROL SO4 2.5/IPRATROPIUM 0.5 INH SOL 3 ML VIAL.NEB. NEB ONE (16:47)
[2021-09-01] MEDS: ALBUTEROL SO4 2.5/IPRATROPIUM 0.5 INH SOL 3 ML VIAL.NEB. NEB SCH ×2 (16:55→19:20)
[2021-09-01] MEDS: MIRTAZAPINE 15 MG TABLET (FP) PO SCH (21:46)
[2021-09-02] MEDS: methylPREDNISolone NA SUCC 40 MG/1 ML VIAL IVPUSH SCH ×4 (02:33→22:56)
[2021-09-02] MEDS: ALBUTEROL SO4 2.5/IPRATROPIUM 0.5 INH SOL 3 ML VIAL.NEB. NEB SCH ×4 (08:25→20:00)
[2021-09-02] MEDS: ACETAMINOPHEN 325 MG TABLET (FP) PO PRN ×2 (08:40→18:05)
[2021-09-02] MEDS: AZITHROMYCIN IVPB 500 MG/250 ML BAG IVPB SCH (09:55)
[2021-09-02] MEDS: ENOXAPARIN NA (PORCINE) 40 MG/0.4 ML DISP.SYRIN SQ SCH (09:55)
[2021-09-02] MEDS: ASPIRIN 81 MG CHEWABLE TABLETS PO SCH (09:55)
[2021-09-02] MEDS: BUDESONIDE/FORMETEROL FUMARATE 160/4.5 mcg INHALER IH SCH ×2 (09:56→22:57)
[2021-09-02] MEDS: MIRTAZAPINE 15 MG TABLET (FP) PO SCH (22:57)
[2021-09-03] MEDS: methylPREDNISolone NA SUCC 40 MG/1 ML VIAL IVPUSH SCH ×3 (02:56→14:07)
[2021-09-03] MEDS: ALBUTEROL SO4 2.5/IPRATROPIUM 0.5 INH SOL 3 ML VIAL.NEB. NEB SCH ×4 (08:30→20:16)
[2021-09-03] MEDS: ACETAMINOPHEN 325 MG TABLET (FP) PO PRN (09:08)
[2021-09-03] MEDS: ENOXAPARIN NA (PORCINE) 40 MG/0.4 ML DISP.SYRIN SQ SCH (09:09)
[2021-09-03] MEDS: ASPIRIN 81 MG CHEWABLE TABLETS PO SCH (09:10)
[2021-09-03] MEDS: AZITHROMYCIN IVPB 500 MG/250 ML BAG IVPB SCH (09:10)
[2021-09-03] MEDS: BUDESONIDE/FORMETEROL FUMARATE 160/4.5 mcg INHALER IH SCH ×2 (09:10→21:12)
[2021-09-03] MEDS: predniSONE 20 MG TABLET (UD) PO SCH (15:25)
[2021-09-03] MEDS ORDERED: MELATONIN 1 MG TABLET PO PRN (20:35)
[2021-09-03] MEDS: MIRTAZAPINE 15 MG TABLET (FP) PO SCH (21:12)
[2021-09-04] MEDS: ACETAMINOPHEN 325 MG TABLET (FP) PO PRN ×2 (06:33→14:37)
[2021-09-04] MEDS: ALBUTEROL SO4 2.5/IPRATROPIUM 0.5 INH SOL 3 ML VIAL.NEB. NEB SCH ×3 (07:22→15:09)
[2021-09-04] MEDS: predniSONE 20 MG TABLET (UD) PO SCH (09:49)
[2021-09-04] MEDS: ASPIRIN 81 MG CHEWABLE TABLETS PO SCH (09:49)
[2021-09-04] MEDS: ENOXAPARIN NA (PORCINE) 40 MG/0.4 ML DISP.SYRIN SQ SCH (09:49)
[2021-09-04] MEDS: BUDESONIDE/FORMETEROL FUMARATE 160/4.5 mcg INHALER IH SCH (09:50)
[2021-09-04] MEDS: AZITHROMYCIN IVPB 500 MG/250 ML BAG IVPB SCH (09:50)
[2021-09-04 14:10] VITALS: BP 142/75; PULSE 89; TEMP 98.6
== END 2021-09-04 15:33 | disposition home or self-care (01) | DRG 140 ==
LOC: JER 20:30 → JERBED 23:22 → J7W 09-01 17:47
PROVIDERS: ADMIT Internal Medicine; ATTEND Internal Medicine
DX: J44.1 Chronic obstructive pulmonary disease with (acute) exacerbation (principal); J44.9 Chronic obstructive pulmonary disease, unspecified; E11.9 Type 2 diabetes mellitus without complications; F17.210 Nicotine dependence, cigarettes, uncomplicated; K21.9 Gastro-esophageal reflux disease without esophagitis
CPT/HCPCS: 0241U-QW; 36415; 71046-TC-FY; 80048; 80053; 83735; 84484; 85025; 87040; 93005; 93010; 94640; 99285-25; C9803-CS; J1100; U0003; U0005

== ENCOUNTER 2021-12-02 18:38 | Inpatient (IN) | payer OTHER ==
[2021-12-02 18:48] VITALS: BMI 22.1
[2021-12-02] MEDS ORDERED: DEXAMETHASONE SOD PHOSPHATE 10 MG/1 ML VIAL IVPUSH ONE (19:58)
[2021-12-02] MEDS ORDERED: DEXAMETHASONE SOD PHOSPHATE 10 MG/1 ML VIAL ONE (20:43)
[2021-12-02] MEDS ORDERED: ALBUTEROL SO4 2.5/IPRATROPIUM 0.5 INH SOL 3 ML VIAL.NEB. NEB ONE (20:43)
[2021-12-02] MEDS: ALBUTEROL SO4 2.5/IPRATROPIUM 0.5 INH SOL 3 ML VIAL.NEB. NEB SCH ×3 (20:45→21:15)
[2021-12-02 21:05] LABS: BASO % 1.1 % (0-2.0); EOS % 11.8 % (0-4.5); HEMATOCRIT 42.9 % (32.4-45.2); HEMOGLOBIN 14.8 GM/dL (10.7-15.3); MCH 33.3 pg (25.7-33.7); MCHC 34.5 g/dl (32.0-36.0); MEAN CELL VOLUME 96.4 fl (80-96); MEAN PLT VOLUME 8.7 fl (7.5-11.1); MONO % 9.6 % (3.8-10.2); NEUT % 46.5 % (42.8-82.8); PLATELET COUNT 292 10^3/uL (134-434); RBC 4.45 M/mm3 (3.60-5.2); RDW 12.7 % (11.6-15.6); WHITE BLOOD COUNT 6.8 K/mm3 (4.0-10.0)
[2021-12-02 21:10] LABS: INR 0.97 (0.83-1.09); PROTHROMBIN TIME (PATIENT) 11.2 SEC (9.7-13.0)
[2021-12-02 21:14] LABS: ACTIVATED PTT 30.7 SECONDS (25.2-36.5)
[2021-12-02 21:18] LABS: CHLORIDE 101 mmol/L (98-107); SODIUM 136 mmol/L (136-145)
[2021-12-02 21:20] LABS: CALCIUM 9.6 mg/dL (8.5-10.1)
[2021-12-02 21:21] LABS: ALBUMIN 3.9 g/dl (3.4-5.0); ANION GAP 10 MMOL/L (8-16); CO2 25 mmol/L (21-32); GLUCOSE,RANDOM 88 mg/dL (74-106)
[2021-12-02 21:22] LABS: LIPASE 64 U/L (73-393)
[2021-12-02 21:24] LABS: CREATININE 0.6 mg/dL (0.55-1.3); SGOT/AST 33 U/L (15-37); SGPT/ALT 32 U/L (13-61)
[2021-12-02 21:26] LABS: BILIRUBIN,TOTAL 0.8 mg/dL (0.2-1); TOT PROT 7.8 g/dl (6.4-8.2)
[2021-12-02 21:27] LABS: ALK PHOS 97 U/L (45-117)
[2021-12-02 22:16] LABS: BLOOD UREA NITROGEN 2.9 mg/dL (7-18)
[2021-12-02] MEDS ORDERED: LACTATED RINGERS SOLUTION 1000 ML INFUS.BAG IV ONE (22:22)
[2021-12-02] MEDS ORDERED: ALBUTEROL SO4 0.083% IH SOL 2.5 MG/3 ML VIAL.NEB. NEB ONE ×2 (22:29→22:55)
[2021-12-02] MEDS ORDERED: DOCUSATE SODIUM 100 MG CAPSULE (FP) PO PRN (22:58)
[2021-12-02] MEDS ORDERED: ACETAMINOPHEN 325 MG TABLET (FP) PO PRN (22:58)
[2021-12-02 23:32] LABS: MAGNESIUM 1.9 mg/dL (1.8-2.4)
[2021-12-03 06:59] LABS: BASO % 0.2 % (0-2.0); EOS % 0.3 % (0-4.5); HEMATOCRIT 42.2 % (32.4-45.2); HEMOGLOBIN 14.3 GM/dL (10.7-15.3); LYMPH % 14.6 % (8-40); MCH 32.6 pg (25.7-33.7); MCHC 33.9 g/dl (32.0-36.0); MEAN CELL VOLUME 96.4 fl (80-96); MEAN PLT VOLUME 8.9 fl (7.5-11.1); MONO % 1.7 % (3.8-10.2); NEUT % 83.2 % (42.8-82.8); PLATELET COUNT 290 10^3/uL (134-434); RBC 4.38 M/mm3 (3.60-5.2); RDW 12.5 % (11.6-15.6)
[2021-12-03 07:16] LABS: BLOOD UREA NITROGEN 5.9 mg/dL (7-18); CALCIUM 9.2 mg/dL (8.5-10.1)
[2021-12-03 07:20] LABS: CREATININE 0.5 mg/dL (0.55-1.3)
[2021-12-03] MEDS ORDERED: methylPREDNISolone NA SUCC 40 MG/1 ML VIAL ONE (09:38)
[2021-12-03] MEDS ORDERED: ENOXAPARIN NA (PORCINE) 40 MG/0.4 ML DISP.SYRIN SQ ONE (09:38)
[2021-12-03] MEDS ORDERED: ASPIRIN 81 MG CHEWABLE TABLETS ONE (09:38)
[2021-12-03] MEDS ORDERED: methylPREDNISolone NA SUCC 40 MG/1 ML VIAL IVPUSH SCH (10:00)
[2021-12-03] MEDS ORDERED: ASPIRIN 81 MG CHEWABLE TABLETS PO SCH (10:00)
[2021-12-03] MEDS ORDERED: ENOXAPARIN NA (PORCINE) 40 MG/0.4 ML DISP.SYRIN SQ SCH (10:00)
[2021-12-03] MEDS ORDERED: PANTOPRAZOLE 20 MG TABLET PO SCH (12:15)
[2021-12-03 12:25] VITALS: TEMP 98.3
[2021-12-03] MEDS ORDERED: PANTOPRAZOLE 20 MG TABLET PO ONE (13:57)
[2021-12-03] MEDS ORDERED: ACETAMINOPHEN 325 MG TABLET (FP) ONE (13:57)
[2021-12-03 17:15] VITALS: BP 140/79; PULSE 90; RESP 20
[2021-12-03] MEDS ORDERED: MIRTAZAPINE 15 MG TABLET (FP) PO SCH (22:00)
== END 2021-12-03 17:36 | disposition left against medical advice (07) | DRG 140 ==
LOC: JER 18:38 → JERBED 21:55
PROVIDERS: ADMIT Internal Medicine; ATTEND Internal Medicine
DX: J44.1 Chronic obstructive pulmonary disease with (acute) exacerbation (principal); J45.901 Unspecified asthma with (acute) exacerbation; E11.9 Type 2 diabetes mellitus without complications; F17.200 Nicotine dependence, unspecified, uncomplicated; K21.9 Gastro-esophageal reflux disease without esophagitis; R94.31 Abnormal electrocardiogram [ECG] [EKG]
CPT/HCPCS: 0241U-QW; 36415; 71045-TC-FY; 80048; 80053; 83690; 83735; 84484; 85025; 85610; 85730; 93005; 93010; 99291; 99292; J1100

== ENCOUNTER 2022-09-15 22:36 | Inpatient (IN) | payer OTHER ==
[2022-09-15] MEDS ORDERED: methylPREDNISolone NA SUCC 125 MG/2 ML VIAL IVPUSH ONE (22:58)
[2022-09-15] MEDS ORDERED: ALBUTEROL SO4 2.5/IPRATROPIUM 0.5 INH SOL 3 ML VIAL.NEB. NEB ONE (23:00)
[2022-09-15 23:02] VITALS: BMI 23.0
[2022-09-15] MEDS: ALBUTEROL SO4 2.5/IPRATROPIUM 0.5 INH SOL 3 ML VIAL.NEB. NEB SCH ×3 (23:02→23:14)
[2022-09-15 23:45] LABS: VENOUS BASE EXCESS -3.5 mmol/L (-2-2); VENOUS O2 SATURATION 25.3 % (70-80); VENOUS PCO2 45.2 mmHg (38-52); VENOUS PH 7.318 (7.310-7.410)
[2022-09-15 23:49] LABS: BASO % 2.4 % (0-2.0); EOS % 3.1 % (0-4.5); HEMATOCRIT 39.8 % (32.4-45.2); HEMOGLOBIN 13.8 GM/dL (10.7-15.3); LYMPH % 44.8 % (8-40); MCH 32.9 pg (25.7-33.7); MCHC 34.5 g/dl (32.0-36.0); MEAN CELL VOLUME 95.3 fl (80-96); MEAN PLT VOLUME 7.8 fl (7.5-11.1); MONO % 21.3 % (3.8-10.2); NEUT % 28.4 % (42.8-82.8); PLATELET COUNT 231 10^3/uL (134-434); RBC 4.18 M/mm3 (3.60-5.2); RDW 13.1 % (11.6-15.6); WHITE BLOOD COUNT 4.2 K/mm3 (4.0-10.0)
[2022-09-15] MEDS ORDERED: methylPREDNISolone NA SUCC 125 MG/2 ML VIAL ONE (23:52)
[2022-09-15 23:55] LABS: INR 0.96 (0.83-1.09); PROTHROMBIN TIME (PATIENT) 11.1 SEC (9.7-13.0)
[2022-09-15 23:58] LABS: ACTIVATED PTT 30.8 SECONDS (25.2-36.5)
[2022-09-16] MEDS ORDERED: ALBUTEROL SO4 2.5/IPRATROPIUM 0.5 INH SOL 3 ML VIAL.NEB. NEB ONE ×2 (00:03→07:05)
[2022-09-16] MEDS: ALBUTEROL SO4 2.5/IPRATROPIUM 0.5 INH SOL 3 ML VIAL.NEB. NEB SCH ×5 (00:06→19:16)
[2022-09-16 00:09] LABS: CHLORIDE 97 mmol/L (98-107); POTASSIUM 3.9 mmol/L (3.5-5.1); SODIUM 132 mmol/L (136-145)
[2022-09-16 00:11] LABS: ALBUMIN 3.9 g/dl (3.4-5.0); ANION GAP 10 MMOL/L (8-16); CALCIUM 9.3 mg/dL (8.5-10.1); CO2 25 mmol/L (21-32); GLUCOSE,RANDOM 89 mg/dL (74-106); MAGNESIUM 1.9 mg/dL (1.8-2.4)
[2022-09-16 00:14] LABS: CREATININE 0.5 mg/dL (0.55-1.3); SGOT/AST 80 U/L (15-37)
[2022-09-16 00:15] LABS: SGPT/ALT 68 U/L (13-61)
[2022-09-16 00:16] LABS: BILIRUBIN,TOTAL 0.6 mg/dL (0.2-1); TOT PROT 7.1 g/dl (6.4-8.2)
[2022-09-16 00:17] LABS: ALK PHOS 70 U/L (45-117)
[2022-09-16 00:31] LABS: BLOOD UREA NITROGEN 1.7 mg/dL (7-18)
[2022-09-16] MEDS ORDERED: CEFTRIAXONE 1,000 MG in DEXTROSE 5%-WATER - 50 ML IVPB ONE (03:40)
[2022-09-16] MEDS ORDERED: AZITHROMYCIN IVPB 500 MG in DEXTROSE 5%-WATER - 250 ML IVPB ONE (03:40)
[2022-09-16] MEDS ORDERED: ACETAMINOPHEN 1000 MG/100 ML BAG IVPB ONE (03:40)
[2022-09-16] MEDS ORDERED: ALBUTEROL SO4 0.5 % INH SOLN 2.5 MG/0.5 ML VIAL.NEB. NEB ONE (03:41)
[2022-09-16] MEDS ORDERED: ACETAMINOPHEN INJECTION 100 ML IVPB ONE (03:41)
[2022-09-16] MEDS: ALBUTEROL SO4 0.083% IH SOL 2.5 MG/3 ML VIAL.NEB. NEB SCH ×4 (03:50→04:40)
[2022-09-16] MEDS ORDERED: CEFTRIAXONE 1 GM/50 ML BAG ONE (04:03)
[2022-09-16] MEDS ORDERED: MAGNESIUM 1GM/D5W - 1 GM/100 ML IVPB IVPB ONE (04:03)
[2022-09-16] MEDS ORDERED: AZITHROMYCIN IVPB 500 MG/250 ML BAG IVPB ONE (04:50)
[2022-09-16 06:15] LABS: ANISOCYTOSIS 2+; MACROCYTOSIS 0; ROULEAU 1+
[2022-09-16 06:32] LABS: HEMATOCRIT 40.3 % (32.4-45.2); HEMOGLOBIN 13.4 GM/dL (10.7-15.3); MCH 32.6 pg (25.7-33.7); MCHC 33.3 g/dl (32.0-36.0); MEAN CELL VOLUME 97.8 fl (80-96); MEAN PLT VOLUME 8.2 fl (7.5-11.1); PLATELET COUNT 239 10^3/uL (134-434); RBC 4.11 M/mm3 (3.60-5.2); RDW 13.2 % (11.6-15.6)
[2022-09-16 06:37] LABS: WHITE BLOOD COUNT 1.4 K/mm3 (4.0-10.0)
[2022-09-16 06:51] LABS: CHLORIDE 102 mmol/L (98-107); POTASSIUM 3.8 mmol/L (3.5-5.1); SODIUM 138 mmol/L (136-145)
[2022-09-16 06:53] LABS: ANION GAP 14 MMOL/L (8-16); CALCIUM 8.9 mg/dL (8.5-10.1); CO2 22 mmol/L (21-32); GLUCOSE,RANDOM 203 mg/dL (74-106); MAGNESIUM 2.2 mg/dL (1.8-2.4)
[2022-09-16 06:57] LABS: CREATININE 0.6 mg/dL (0.55-1.3)
[2022-09-16 07:02] LABS: BLOOD UREA NITROGEN 1.5 mg/dL (7-18)
[2022-09-16] MEDS ORDERED: ALBUTEROL SO4 HFA INHALER IH PRN (07:38)
[2022-09-16] MEDS: methylPREDNISolone NA SUCC 40 MG/1 ML VIAL IVPUSH SCH ×3 (08:48→21:35)
[2022-09-16 09:25] LABS: ANISOCYTOSIS 1+; MACROCYTOSIS 0; OVALOCYTE 2+; TEAR DROP CELLS 1+
[2022-09-16] MEDS: ACETAMINOPHEN 500 MG TABLET (FP) PO PRN ×3 (09:51→21:36)
[2022-09-16] MEDS: BUDESONIDE/FORMETEROL FUMARATE 160/4.5 mcg INHALER IH SCH ×2 (09:51→21:37)
[2022-09-16] MEDS: ASPIRIN 81 MG CHEWABLE TABLETS PO SCH (09:51)
[2022-09-16] MEDS: HEPARIN NA (PORCINE) 5,000 UNITS/ML 1ML VIAL SQ SCH ×2 (09:56→21:37)
[2022-09-16] MEDS: MELATONIN 5 MG TABLETS PO PRN (21:43)
[2022-09-17] MEDS: methylPREDNISolone NA SUCC 40 MG/1 ML VIAL IVPUSH SCH ×3 (03:19→17:51)
[2022-09-17] MEDS: ACETAMINOPHEN 500 MG TABLET (FP) PO PRN ×2 (07:00→12:21)
[2022-09-17] MEDS: ALBUTEROL SO4 2.5/IPRATROPIUM 0.5 INH SOL 3 ML VIAL.NEB. NEB SCH ×4 (07:15→19:43)
[2022-09-17 08:15] LABS: BASO % 0.1 % (0-2.0); HEMOGLOBIN 14.5 GM/dL (10.7-15.3); LYMPH % 5.9 % (8-40); MCH 33.1 pg (25.7-33.7); MCHC 34.4 g/dl (32.0-36.0); MEAN CELL VOLUME 96.3 fl (80-96); MEAN PLT VOLUME 9.1 fl (7.5-11.1); MONO % 7.5 % (3.8-10.2); NEUT % 86.5 % (42.8-82.8); PLATELET COUNT 246 10^3/uL (134-434); RBC 4.36 M/mm3 (3.60-5.2)
[2022-09-17 08:16] LABS: POTASSIUM 4.4 mmol/L (3.5-5.1)
[2022-09-17 08:18] LABS: CALCIUM 10.2 mg/dL (8.5-10.1)
[2022-09-17 08:20] LABS: BLOOD UREA NITROGEN 5.8 mg/dL (7-18)
[2022-09-17 08:24] LABS: CREATININE 0.6 mg/dL (0.55-1.3)
[2022-09-17 08:26] LABS: BILIRUBIN,TOTAL 0.7 mg/dL (0.2-1); TOT PROT 7.4 g/dl (6.4-8.2)
[2022-09-17] MEDS: CEFTRIAXONE 1 GM in DEXTROSE 5%-WATER - 50 ML IVPB SCH (09:32)
[2022-09-17] MEDS: ASPIRIN 81 MG CHEWABLE TABLETS PO SCH (09:33)
[2022-09-17] MEDS: HEPARIN NA (PORCINE) 5,000 UNITS/ML 1ML VIAL SQ SCH ×2 (09:33→21:24)
[2022-09-17] MEDS: BUDESONIDE/FORMETEROL FUMARATE 160/4.5 mcg INHALER IH SCH ×2 (09:34→21:24)
[2022-09-17] MEDS: AZITHROMYCIN IVPB 500 MG/250 ML BAG IVPB SCH (09:37)
[2022-09-17] MEDS: MELATONIN 5 MG TABLETS PO PRN (21:24)
[2022-09-18] MEDS: methylPREDNISolone NA SUCC 40 MG/1 ML VIAL IVPUSH SCH ×3 (02:35→21:20)
[2022-09-18] MEDS: ACETAMINOPHEN 500 MG TABLET (FP) PO PRN ×2 (06:39→09:28)
[2022-09-18] MEDS: ALBUTEROL SO4 2.5/IPRATROPIUM 0.5 INH SOL 3 ML VIAL.NEB. NEB SCH ×4 (08:21→20:22)
[2022-09-18] MEDS: ASPIRIN 81 MG CHEWABLE TABLETS PO SCH (09:24)
[2022-09-18] MEDS: HEPARIN NA (PORCINE) 5,000 UNITS/ML 1ML VIAL SQ SCH ×2 (09:25→21:20)
[2022-09-18] MEDS: AZITHROMYCIN IVPB 500 MG/250 ML BAG IVPB SCH (09:25)
[2022-09-18] MEDS: CEFTRIAXONE 1 GM in DEXTROSE 5%-WATER - 50 ML IVPB SCH (09:25)
[2022-09-18] MEDS: BUDESONIDE/FORMETEROL FUMARATE 160/4.5 mcg INHALER IH SCH ×2 (10:08→21:20)
[2022-09-18] MEDS: MELATONIN 5 MG TABLETS PO PRN (21:20)
[2022-09-19] MEDS: ALBUTEROL SO4 2.5/IPRATROPIUM 0.5 INH SOL 3 ML VIAL.NEB. NEB SCH ×2 (07:15→11:30)
[2022-09-19] MEDS: ACETAMINOPHEN 500 MG TABLET (FP) PO PRN (08:51)
[2022-09-19 09:06] VITALS: BP 137/86; PULSE 94; RESP 18; TEMP 98.2
[2022-09-19] MEDS: BUDESONIDE/FORMETEROL FUMARATE 160/4.5 mcg INHALER IH SCH (09:31)
[2022-09-19] MEDS: CEFTRIAXONE 1 GM in DEXTROSE 5%-WATER - 50 ML IVPB SCH (09:31)
[2022-09-19] MEDS: HEPARIN NA (PORCINE) 5,000 UNITS/ML 1ML VIAL SQ SCH (09:31)
[2022-09-19] MEDS: methylPREDNISolone NA SUCC 40 MG/1 ML VIAL IVPUSH SCH (09:31)
[2022-09-19] MEDS: ASPIRIN 81 MG CHEWABLE TABLETS PO SCH (09:31)
[2022-09-19] MEDS: AZITHROMYCIN IVPB 500 MG/250 ML BAG IVPB SCH (09:32)
== END 2022-09-19 12:59 | disposition home or self-care (01) | DRG 140 ==
LOC: JER 22:36 → JERBED 09-16 03:37 → J7W 09-16 07:09 → OBSVTOIN 09-18 15:21
PROVIDERS: ADMIT Internal Medicine; ATTEND Internal Medicine
DX: J44.1 Chronic obstructive pulmonary disease with (acute) exacerbation (principal); D70.8 Other neutropenia; J45.901 Unspecified asthma with (acute) exacerbation; E11.9 Type 2 diabetes mellitus without complications; F17.210 Nicotine dependence, cigarettes, uncomplicated; J98.11 Atelectasis; K21.9 Gastro-esophageal reflux disease without esophagitis
CPT/HCPCS: 0241U-QW; 36415; 71045-TC-FY; 71275-TC; 80048; 80053; 82803; 82962; 83735; 84484; 85025; 85610; 85730; 87040; 87086; 87899; 93005; 93010; 94640; 99285-25; G0378; J1644

== ENCOUNTER 2023-07-30 21:18 | Observation (INO) | payer OTHER ==
[2023-07-30] MEDS ORDERED: ALBUTEROL SO4 2.5/IPRATROPIUM 0.5 INH SOL 3 ML VIAL.NEB. NEB ONE ×2 (21:22→21:48)
[2023-07-30 21:30] VITALS: BMI 26.5
[2023-07-30] MEDS: ALBUTEROL SO4 2.5/IPRATROPIUM 0.5 INH SOL 3 ML VIAL.NEB. NEB SCH (21:50)
[2023-07-30 22:28] LABS: HEMATOCRIT 40.1 % (32.4-45.2); HEMOGLOBIN 13.7 GM/dL (10.7-15.3); MCH 32.1 pg (25.7-33.7); MCHC 34.1 g/dl (32.0-36.0); MEAN CELL VOLUME 94.2 fl (80-96); MEAN PLT VOLUME 7.7 fl (7.5-11.1); PLATELET COUNT 306 10^3/uL (134-434); RBC 4.26 M/mm3 (3.60-5.2); RDW 12.7 % (11.6-15.6); WHITE BLOOD COUNT 12.5 K/mm3 (4.0-10.0)
[2023-07-30] MEDS ORDERED: ALBUTEROL SO4 0.083% IH SOL 2.5 MG/3 ML VIAL.NEB. NEB ONE (22:32)
[2023-07-30] MEDS ORDERED: methylPREDNISolone NA SUCC 125 MG/2 ML VIAL ONE (22:32)
[2023-07-30] MEDS: methylPREDNISolone NA SUCC 125 MG/2 ML VIAL IVPUSH ONE (22:41)
[2023-07-30] MEDS: ALBUTEROL SO4 0.083% IH SOL 2.5 MG/3 ML VIAL.NEB. NEB SCH (22:42)
[2023-07-30 22:45] LABS: POTASSIUM 4.8 mmol/L (3.5-5.1)
[2023-07-30 22:46] LABS: VENOUS BASE EXCESS -4.8 mmol/L (-2-2); VENOUS O2 SATURATION 53.6 % (70-80); VENOUS PCO2 40.4 mmHg (38-52); VENOUS PH 7.329 (7.310-7.410)
[2023-07-30 22:47] LABS: CALCIUM 8.8 mg/dL (8.5-10.1)
[2023-07-30 22:49] LABS: ALBUMIN 3.4 g/dl (3.4-5.0); BLOOD UREA NITROGEN 5.3 mg/dL (7-18)
[2023-07-30 22:52] LABS: BILIRUBIN,TOTAL 0.3 mg/dL (0.2-1); CREATININE 0.5 mg/dL (0.55-1.3); TOT PROT 6.6 g/dl (6.4-8.2)
[2023-07-30 23:21] LABS: ANISOCYTOSIS 0; MACROCYTOSIS 0
[2023-07-31] MEDS ORDERED: AZITHROMYCIN 500 MG TABLET ONE (00:47)
[2023-07-31] MEDS: AZITHROMYCIN 500 MG TABLET PO ONE (00:53)
[2023-07-31] MEDS: FOLIC ACID INJECTION - 1 MG, THIAMINE HCL 100 MG, MULTIVIT INJECTION ADULT 10 ML in SOD... IVPB ONE (00:53)
[2023-07-31] MEDS ORDERED: CEFTRIAXONE 1 GM/50 ML BAG ONE (02:30)
[2023-07-31] MEDS: CEFTRIAXONE 1 GM in DEXTROSE 5%-WATER - 100 ML IVPB ONE (02:38)
[2023-07-31] MEDS ORDERED: MELATONIN 5 MG TABLETS PO PRN (05:08)
[2023-07-31] MEDS ORDERED: ALBUTEROL SO4 0.083% IH SOL 2.5 MG/3 ML VIAL.NEB. NEB ONE (06:35)
[2023-07-31] MEDS: ALBUTEROL SO4 2.5/IPRATROPIUM 0.5 INH SOL 3 ML VIAL.NEB. NEB SCH (08:19)
[2023-07-31 09:03] LABS: BASO % 0.3 % (0-2.0); EOS % 0.1 % (0-4.5); HEMATOCRIT 38.1 % (32.4-45.2); HEMOGLOBIN 13.3 GM/dL (10.7-15.3); LYMPH % 9.9 % (8-40); MCH 32.3 pg (25.7-33.7); MCHC 34.7 g/dl (32.0-36.0); MEAN CELL VOLUME 93.1 fl (80-96); MEAN PLT VOLUME 8.1 fl (7.5-11.1); MONO % 0.8 % (3.8-10.2); NEUT % 88.9 % (42.8-82.8); PLATELET COUNT 315 10^3/uL (134-434); RDW 12.6 % (11.6-15.6); WHITE BLOOD COUNT 5.2 K/mm3 (4.0-10.0)
[2023-07-31 09:28] LABS: POTASSIUM 4.6 mmol/L (3.5-5.1)
[2023-07-31 09:40] LABS: BLOOD UREA NITROGEN 5.6 mg/dL (7-18); CREATININE 0.5 mg/dL (0.55-1.3)
[2023-07-31] MEDS: ESCITALOPRAM OXALATE 10 MG TABLET PO SCH (10:33)
[2023-07-31] MEDS: NICOTINE 7 MG/24 HOURS TOPICAL PATCH TD SCH (10:33)
[2023-07-31] MEDS: HEPARIN NA (PORCINE) 5,000 UNITS/ML 1ML VIAL SQ SCH (10:33)
[2023-07-31] MEDS: FERROUS SO4 325 MG TABLET (FP) PO SCH (10:33)
[2023-07-31] MEDS: methylPREDNISolone NA SUCC 40 MG/1 ML VIAL IVPUSH SCH (10:34)
[2023-07-31] MEDS: ACETAMINOPHEN 325 MG TABLET (FP) PO PRN (10:49)
[2023-07-31] MEDS: BUDESONIDE/FORMETEROL FUMARATE 160/4.5 mcg INHALER IH SCH (12:06)
[2023-07-31 18:13] VITALS: RESP 18
[2023-08-01] MEDS: AZITHROMYCIN IVPB 500 MG/250 ML BAG IVPB SCH (09:53)
[2023-08-01] MEDS: CEFTRIAXONE 1 GM in DEXTROSE 5%-WATER - 50 ML IVPB SCH (09:54)
[2023-08-01 13:18] VITALS: BP 153/74; PULSE 99; TEMP 97.5
== END 2023-08-01 14:03 | disposition home or self-care (01) ==
LOC: JER 21:18 → JERBED 07-31 01:40 → J7W 07-31 05:36
PROVIDERS: ADMIT Internal Medicine; ATTEND Family Medicine
PROC: 3E0F7GC Introduction of Other Therapeutic Substance into Respiratory Tract, Via Natural or Artificial Opening (ICD-10-PCS; principal; 2023-07-31)
PROC: 3E023GC Introduction of Other Therapeutic Substance into Muscle, Percutaneous Approach (ICD-10-PCS; 2023-07-31)
DX: D72.10 Eosinophilia, unspecified (principal); J96.01 Acute respiratory failure with hypoxia; J44.1 Chronic obstructive pulmonary disease with (acute) exacerbation; E11.9 Type 2 diabetes mellitus without complications; K21.9 Gastro-esophageal reflux disease without esophagitis; R07.89 Other chest pain; J45.909 Unspecified asthma, uncomplicated; F17.200 Nicotine dependence, unspecified, uncomplicated
CPT/HCPCS: 0241U-QW; 36415; 71045-TC-FY; 71270-TC; 80048; 80053; 82803; 82962; 83735; 84484; 85025; 87040; 87070; 87205; 87899; 93005; 93010; 94640; 96365; 96366; 96372; 96375; 99285-25; G0378; J1644; Q9967

== ENCOUNTER 2024-01-25 18:55 | Inpatient (IN) | payer OTHER ==
[2024-01-25 18:59] VITALS: BMI 22.6
[2024-01-25] MEDS ORDERED: ALBUTEROL SO4 2.5/IPRATROPIUM 0.5 INH SOL 3 ML VIAL.NEB. NEB ONE ×2 (19:41→22:17)
[2024-01-25] MEDS: ALBUTEROL SO4 2.5/IPRATROPIUM 0.5 INH SOL 3 ML VIAL.NEB. NEB ONE ×2 (19:46→22:27)
[2024-01-25 20:05] LABS: VENOUS BASE EXCESS -5.1 mmol/L (-2-2); VENOUS O2 SATURATION 72.2 % (70-80); VENOUS PCO2 35.8 mmHg (38-52); VENOUS PH 7.356 (7.310-7.410)
[2024-01-25 20:12] LABS: BASO % 0.3 % (0-2.0); EOS % 0.6 % (0-4.5); HEMATOCRIT 42.9 % (32.4-45.2); HEMOGLOBIN 14.8 GM/dL (10.7-15.3); LYMPH % 12.3 % (8-40); MCH 31.9 pg (25.7-33.7); MCHC 34.4 g/dl (32.0-36.0); MEAN CELL VOLUME 92.7 fl (80-96); MEAN PLT VOLUME 7.8 fl (7.5-11.1); NEUT % 85.8 % (42.8-82.8); PLATELET COUNT 341 10^3/uL (134-434); RBC 4.63 M/mm3 (3.60-5.2); RDW 12.8 % (11.6-15.6); WHITE BLOOD COUNT 6.4 K/mm3 (4.0-10.0)
[2024-01-25] MEDS ORDERED: predniSONE 20 MG TABLET (UD) ONE (20:19)
[2024-01-25] MEDS: predniSONE 20 MG TABLET (UD) PO ONE (20:22)
[2024-01-25 20:38] LABS: POTASSIUM 4.3 mmol/L (3.5-5.1)
[2024-01-25 20:41] LABS: CALCIUM 8.8 mg/dL (8.5-10.1)
[2024-01-25 20:42] LABS: ALBUMIN 3.7 g/dl (3.4-5.0); BLOOD UREA NITROGEN 5.9 mg/dL (7-18)
[2024-01-25 20:45] LABS: CREATININE 0.5 mg/dL (0.55-1.3)
[2024-01-25 20:46] LABS: BILIRUBIN,TOTAL 0.6 mg/dL (0.2-1); TOT PROT 6.9 g/dl (6.4-8.2)
[2024-01-25] MEDS ORDERED: ACETAMINOPHEN INJECTION 100 ML ONE (22:17)
[2024-01-25] MEDS: SODIUM CHLORIDE 1,000 ML IV STA (22:27)
[2024-01-25] MEDS: ACETAMINOPHEN 1000 MG/100 ML BAG IVPB ONE (22:27)
[2024-01-26] MEDS ORDERED: ASPIRIN 81 MG CHEWABLE TABLETS ONE (01:05)
[2024-01-26] MEDS: ASPIRIN 81 MG CHEWABLE TABLETS PO ONE (01:10)
[2024-01-26] MEDS ORDERED: methylPREDNISolone NA SUCC 40 MG/1 ML VIAL ONE ×3 (06:10→18:47)
[2024-01-26] MEDS: methylPREDNISolone NA SUCC 40 MG/1 ML VIAL IVPUSH SCH (06:16)
[2024-01-26] MEDS ORDERED: ACETAMINOPHEN 500 MG TABLET (FP) PO PRN (06:18)
[2024-01-26] MEDS ORDERED: CEFTRIAXONE 1 GM/50 ML BAG ONE (06:30)
[2024-01-26] MEDS: CEFTRIAXONE 1 GM in DEXTROSE 5%-WATER - 50 ML IVPB SCH (06:34)
[2024-01-26] MEDS ORDERED: AZITHROMYCIN IVPB 500 MG/250 ML BAG IVPB ONE (06:52)
[2024-01-26] MEDS: AZITHROMYCIN IVPB 500 MG/250 ML BAG IVPB ONE (06:58)
[2024-01-26 08:18] LABS: HEMATOCRIT 41.8 % (32.4-45.2); HEMOGLOBIN 14.4 GM/dL (10.7-15.3); MCH 32.4 pg (25.7-33.7); MCHC 34.6 g/dl (32.0-36.0); MEAN CELL VOLUME 93.8 fl (80-96); MEAN PLT VOLUME 8.2 fl (7.5-11.1); PLATELET COUNT 329 10^3/uL (134-434); RBC 4.46 M/mm3 (3.60-5.2); RDW 13.3 % (11.6-15.6); WHITE BLOOD COUNT 5.3 K/mm3 (4.0-10.0)
[2024-01-26 08:32] LABS: POTASSIUM 4.4 mmol/L (3.5-5.1)
[2024-01-26 08:40] LABS: BLOOD UREA NITROGEN 8.7 mg/dL (7-18)
[2024-01-26 08:41] LABS: ALBUMIN 3.5 g/dl (3.4-5.0); MAGNESIUM 1.9 mg/dL (1.8-2.4)
[2024-01-26 08:42] LABS: BILIRUBIN,TOTAL 0.6 mg/dL (0.2-1); TOT PROT 6.6 g/dl (6.4-8.2)
[2024-01-26 08:44] LABS: PHOSPHOROUS 3.8 mg/dL (2.5-4.9)
[2024-01-26 08:45] LABS: CREATININE 0.5 mg/dL (0.55-1.3)
[2024-01-26] MEDS ORDERED: NICOTINE 7 MG/24 HOURS TOPICAL PATCH TD ONE (12:04)
[2024-01-26] MEDS ORDERED: ENOXAPARIN NA (PORCINE) 40 MG/0.4 ML DISP.SYRIN SQ ONE (12:05)
[2024-01-26] MEDS ORDERED: ALBUTEROL SO4 2.5/IPRATROPIUM 0.5 INH SOL 3 ML VIAL.NEB. NEB ONE (12:12)
[2024-01-26] MEDS: NICOTINE 7 MG/24 HOURS TOPICAL PATCH TD SCH (12:22)
[2024-01-26] MEDS: ALBUTEROL SO4 2.5/IPRATROPIUM 0.5 INH SOL 3 ML VIAL.NEB. NEB SCH (12:22)
[2024-01-26] MEDS: ENOXAPARIN NA (PORCINE) 40 MG/0.4 ML DISP.SYRIN SQ SCH (12:22)
[2024-01-26] MEDS: UMECLIDINIUM/VILANTEROL (ANORO) 62.5/25 MCG INHALER IH SCH (12:38)
[2024-01-26] MEDS: INSULIN ASPART SLIDING SCALE (NOVOLOG) 1 VIAL SQ SCH (17:42)
[2024-01-26] MEDS ORDERED: FAMOTIDINE 10 MG TABLET ONE (21:10)
[2024-01-26] MEDS: FAMOTIDINE 10 MG TABLET PO SCH (21:16)
[2024-01-26] MEDS: guaiFENesin 600 MG TABLET.ER (FP) PO SCH (23:31)
[2024-01-27 04:27] VITALS: RESP 19
[2024-01-27] MEDS ORDERED: ALBUTEROL SO4 2.5/IPRATROPIUM 0.5 INH SOL 3 ML VIAL.NEB. NEB PRN (06:00)
[2024-01-27 08:10] VITALS: BP 126/65; PULSE 68; TEMP 98.4
[2024-01-27 08:47] LABS: BASO % 0.2 % (0-2.0); HEMATOCRIT 42.9 % (32.4-45.2); HEMOGLOBIN 14.5 GM/dL (10.7-15.3); LYMPH % 8.4 % (8-40); MCHC 33.8 g/dl (32.0-36.0); MEAN CELL VOLUME 94.7 fl (80-96); MEAN PLT VOLUME 8.4 fl (7.5-11.1); MONO % 2.8 % (3.8-10.2); NEUT % 88.6 % (42.8-82.8); PLATELET COUNT 322 10^3/uL (134-434); RBC 4.53 M/mm3 (3.60-5.2); RDW 13.1 % (11.6-15.6); WHITE BLOOD COUNT 10.7 K/mm3 (4.0-10.0)
[2024-01-27 09:16] LABS: POTASSIUM 4.1 mmol/L (3.5-5.1)
[2024-01-27 09:19] LABS: BLOOD UREA NITROGEN 14.8 mg/dL (7-18); CALCIUM 9.3 mg/dL (8.5-10.1)
[2024-01-27 09:22] LABS: CREATININE 0.6 mg/dL (0.55-1.3)
[2024-01-27] MEDS: AZITHROMYCIN IVPB 250 MG in DEXTROSE 5%-WATER - 250 ML IVPB SCH (11:05)
[2024-01-27] MEDS: methylPREDNISolone NA SUCC 40 MG/1 ML VIAL IVPUSH SCH (11:06)
[2024-01-27] MEDS: PANTOPRAZOLE SOD 40 MG SUSPENSION PACKET PO SCH (11:06)
[2024-01-28] MEDS ORDERED: AZITHROMYCIN 250 MG TABLET PO SCH (10:00)
[2024-01-28] MEDS ORDERED: PANTOPRAZOLE 20 MG TABLET PO SCH (10:00)
== END 2024-01-27 14:22 | disposition home or self-care (01) | DRG 140 ==
LOC: JER 18:55 → OBSVTOIN 01-26 01:28 → JERBED 01-26 01:28 → J8W 01-26 23:21
PROVIDERS: ADMIT Internal Medicine; ATTEND Nurse Practitioner
DX: J44.1 Chronic obstructive pulmonary disease with (acute) exacerbation (principal); E11.9 Type 2 diabetes mellitus without complications; K21.9 Gastro-esophageal reflux disease without esophagitis; M54.50 Low back pain, unspecified; R07.89 Other chest pain; R51.9 Headache, unspecified; R05.9 Cough, unspecified; R06.2 Wheezing
CPT/HCPCS: 0241U-QW; 36415; 71046-TC-FY; 80048; 80053; 82803; 82962; 83036; 83735; 84100; 84484; 85025; 85027; 93005; 93010; 94640; 99285-25; J0131